=== PATIENT | female | born 1945 | race Caucasian/White ===

== ENCOUNTER 2023-04-28 11:11 | Outpatient (CLI) | payer MEDICARE, OTHER ==
[~2023-04-28 11:11] MED LIST: APIX5TAB3 PO; CARCD120C PO; FLUO-167 PO; HYDR-3972 PO; LEVO50TA8 PO; LOSA100T58 PO; OXYB5TAB16 PO; SOTA80TA73 PO
== END 2023-04-28 23:59 | disposition home or self-care (01) ==
LOC: CARD DIAG 11:11
PROVIDERS: ATTEND Physician Assistant
DX: I08.8 Other rheumatic multiple valve diseases (principal); R06.02 Shortness of breath
CPT/HCPCS: 93306